=== PATIENT | female | born 1990 | race Asian ===

== ENCOUNTER 2017-02-08 16:14 | Inpatient (IN) | payer OTHER ==
[~2017-02-08] VITALS: Ht 157.5 cm; Wt 82.1 kg
[2017-02-08] MEDS ORDERED: LACTATED RINGER'S 1,000 ML IV SCH (16:24)
[2017-02-08 16:30] VITALS: Ht 157.5 cm; Wt 82.1 kg
[2017-02-08] MEDS ORDERED: OXYTOCIN 30 UNITS/LR 500 ML IV SCH ×2 (16:30)
[2017-02-08] MEDS ORDERED: MISOPROSTOL 200 MCG TAB PR PRN (16:30)
[2017-02-08] MEDS ORDERED: LIDOCAINE 1% (MPF) 30 ML INJ INJ PRN (16:30)
[2017-02-08] MEDS ORDERED: CARBOPROST 250 MCG INJ IM PRN (16:30)
[2017-02-08] MEDS ORDERED: IBUPROFEN 600 MG TAB PO PRN (16:30)
[2017-02-08] MEDS ORDERED: AMPICILLIN 2 GM/NS (PMX) 100 ML IV ONE (16:30)
[2017-02-08] MEDS ORDERED: OXYTOCIN 30 UNITS/LR 500 ML IV PRN (16:30)
[2017-02-08] MEDS ORDERED: METHYLERGONOVINE 0.2 MG INJ IM PRN (16:30)
[2017-02-08] MEDS ORDERED: MAGNESIUM SULFATE 4 GM/100 ML 100 ML IV SCH (17:00)
[2017-02-08] MEDS ORDERED: CA GLUCONATE (GM) 10% 10ML INJ IV PRN (17:00)
[2017-02-08] MEDS: LACTATED RINGER'S 1,000 ML IV SCH (17:01)
[2017-02-08 17:29] VITALS: BP 128/84; PULSE 83; RESP 18
[2017-02-08] MEDS ORDERED: PRENAT PO (17:31)
[2017-02-08] MEDS ORDERED: FERR236T PO (17:32)
[2017-02-08] MEDS ORDERED: CALC600T11 PO (17:32)
[2017-02-08 17:46] LABS: ALBUMIN 3.5 g/dl (3.3-4.9); ALBUMIN/GLOBULIN RATIO 0.85; CALCIUM 9.3 mg/dl (8.4-10.2); CREATININE 0.82 mg/dl (0.44-1.00); POTASSIUM 4.3 mmol/L (3.5-5.1); TOTAL PROTEIN 7.6 g/dl (6.1-8.1)
[2017-02-08] MEDS: MAGNESIUM SULFATE 20 GM/500 ML 500 ML IV SCH (17:58)
[2017-02-08 18:57] LABS: ADD UMIC YES; UR ASCORBIC ACID NEGATIVE (NEGATIVE); UR BACTERIA FEW /HPF (NONE SEEN); UR BILIRUBIN (Dip) NEGATIVE (NEGATIVE); UR BLOOD (Dip) 1+ mg/dL (NEGATIVE); UR CLARITY CLEAR (CLEAR); UR COLOR YELLOW (YELLOW); UR GLUCOSE (Dip) NEGATIVE (NEGATIVE); UR KETONES (Dip) NEGATIVE (NEGATIVE); UR LEUKOCYTE ESTERASE (Dip) NEGATIVE Leu/ul (NEGATIVE); UR NITRITE (Dip) NEGATIVE (NEGATIVE); UR RBC 0 /HPF (0-5); UR SPECIFIC GRAVITY (Dip) 1.009 (1.003-1.030); UR TOTAL PROTEIN (Dip) 2+ mg/dl (NEGATIVE); UR UROBILINOGEN (Dip) NEGATIVE (NEGATIVE)
[2017-02-08 19:36] LABS: ABNORMAL IP MESSAGE 1; BASOPHILS % 0.2 % (0.0-2.0); EOSINOPHILS % 0.1 % (0.0-7.0); HEMATOCRIT 32.2 % (37.0-47.0); HEMOGLOBIN 10.2 g/dl (12.0-16.0); LYMPHOCYTES # 2.6 10^3/ul (0.8-2.9); LYMPHOCYTES % 11.4 % (15.0-51.0); MEAN CORPUSCULAR HEMOGLOBIN 25.7 pg (29.0-33.0); MEAN CORPUSCULAR HGB CONC 31.7 g/dl (32.0-37.0); MEAN CORPUSCULAR VOLUME 81.1 fl (82.0-101.0); MEAN PLATELET VOLUME 11.8 fl (7.4-10.4); MONOCYTE # 1.9 10^3/ul (0.3-0.9); NEUTROPHILS % 75.6 % (39.0-77.0); NUCLEATED RED BLOOD CELLS # 0.2 10^3/ul (0.0-0.0); NUCLEATED RED BLOOD CELLS% 0.8 /100WBC (0.0-0.0); PLATELET COUNT 367 10^3/UL (140-415); RED BLOOD COUNT 3.97 10^6/ul (4.20-5.40); RED CELL DISTRIBUTION WIDTH 14.1 % (11.5-14.5); WHITE BLOOD COUNT 23.2 10^3/ul (4.8-10.8)
[2017-02-08 19:41] LABS: POSITIVE DIFF @See below
[2017-02-08 19:42] LABS: INR 0.82; PROTIME 11.3 Sec (12.2-14.2); PT RATIO 0.9
[2017-02-08 19:43] LABS: PARTIAL THROMBOPLASTIN TIME 28.1 Sec (25.0-35.0)
[2017-02-08] MEDS ORDERED: LABETALOL HCL 20MG INJ IV PRN (20:30)
[2017-02-08] MEDS ORDERED: AMPICILLIN 1 GM/NS (PMX) 50 ML IV SCH (20:30)
[2017-02-09] VITALS (7 sets, daily range): BP systolic 137–154; BP diastolic 69–86; PULSE 70–89; RESP 18
[2017-02-09] MEDS: MAGNESIUM SULFATE 20 GM/500 ML 500 ML IV SCH ×2 (03:30→17:46)
[2017-02-09] MEDS ORDERED: FAMOTIDINE 20 MG INJ IV PRN (03:30)
--- NOTE | 2017-02-09 04:26 | HP ---
Date/Time of Note Date/Time of Note DATE: 02/09/17 TIME: 04:20 OB - History Hx of Present Free Text/Dictation 26 y.o primigravida at 34w3d was sent from clinic for poss induction or futher evaluation for elevated blood pressure and proteinuria Chief Complaint: PIH Estimated Due Date: Mar 19, 2017 : 1 Para: 0 Spontaneous : 0 Therapeutic : 0 Care: Good Care Ultrasounds: Normal mid trimester US Obstetrical Complications: None, Gestational Hypertension Medical Complications: None Past Family/Social History * Past Medical, Surgical, Family and Obstetric Histories reviewed from chart. Blood Type: AB+ Rubella: immune RPR/VDRL: Negative GBS Status: Unknown HBsAG: Negative OB Admission Exam Vital Signs Vital Signs Vital Signs Date Time Temp Pulse Resp B/P Pulse Ox O2 Delivery O2 Flow Rate FiO2 02/08/17 17:29 98.2 83 18 128/84 Room Air Physical Exam HEENT: WNL Heart: Rhythm Normal Lungs: Clear, Equal Abdomen: WNL Extremities: Normal Reflexes: Normal Cervical Dilatation: None Effacement: 0% Station: -3 Membranes: Intact Amniotic Fluid: Unevaluable Heart Rate: 130's Accelerations: Accelerations Present Decelerations: No Decelerations Varibility: Moderate Contractions on Admission: None Last 72 hourBlood Glucose Bedside Glucose - 72 Hours Test 02/09/17 01:08 Bedside Glucose 101mg/dL (70-220) Last 72 hours Lab Results CBC & BMP 02/08/17 16:54 Liver Function Test 02/08/17 16:54 Alanine Aminotransferase (ALT/SGPT) 61 Albumin 3.5 Alkaline Phosphatase 260 H Aspartate Amino Transf (AST/SGOT) 67 H Direct Bilirubin 0.00 Total Protein 7.6 Magnesium Level Test 02/09/17 00:53 Magnesium Level 6.3 *H OB Assessment/Plan Other Assessment: IUP 34w4d PIH Plan: Induction Other plan: terrell consult NEELIMA MONTILLA MD Feb 09, 2017 04:26
[2017-02-09] MEDS: LACTATED RINGER'S 1,000 ML IV SCH ×2 (06:10→20:52)
--- NOTE | 2017-02-09 09:35 | RADRPT ---
PROCEDURE: US OB. CLINICAL INDICATION: labor at 34 weeks gestational age. TECHNIQUE: Multiple sonographic images of the uterus were obtained. The images were revi ewed on a PACS workstation. COMPARISON: No prior studies are available for comparison. FINDINGS: There is a single live intrauterine gestation. heart rate is 124 beats per minute. Measurements were made in order to determine age. The results are as follows: BPD = 8.31 cm. HC = 29.41 cm. AC = 29.87 cm. FL = 6.05 cm. Estimated weight is 2091 +/- 314 grams. LMP growth percentile is 9.8 %. Menstrual age by ultrasound dates is 32 weeks 6 days. The estimated date of delivery is 03/31/2017. Position is cephalic and placenta is anterior grade II. There is no evidence for an abruption or lillian centa previa. IMPRESSION: 1. Single live intrauterine gestation of 32 weeks 6 days menstrual age by ultrasound dates. 2. The estimated date of delivery is 03/31/2017. RPTAT: QQ .Lei Flood MD, Date Time Electronically viewed and signed by .Lei Flood MD, on 02/09/2017 09:34 .R/
[2017-02-09 14:16] LABS: BASOPHIL # 0.1 10^3/ul (0.0-0.1); BASOPHILS % 0.5 % (0.0-2.0); EOSINOPHILS # 0.1 10^3/ul (0.0-0.5); EOSINOPHILS % 0.3 % (0.0-7.0); HEMATOCRIT 33.1 % (37.0-47.0); HEMOGLOBIN 10.7 g/dl (12.0-16.0); LYMPHOCYTES # 2.4 10^3/ul (0.8-2.9); LYMPHOCYTES % 13.5 % (15.0-51.0); MEAN CORPUSCULAR HEMOGLOBIN 26.6 pg (29.0-33.0); MEAN CORPUSCULAR HGB CONC 32.3 g/dl (32.0-37.0); MEAN CORPUSCULAR VOLUME 82.1 fl (82.0-101.0); MEAN PLATELET VOLUME 11.3 fl (7.4-10.4); MONOCYTE # 1.5 10^3/ul (0.3-0.9); MONOCYTES % 8.4 % (0.0-11.0); NEUTROPHILS % 72.9 % (39.0-77.0); NUCLEATED RED BLOOD CELLS # 0.2 10^3/ul (0.0-0.0); PLATELET COUNT 352 10^3/UL (140-415); RED BLOOD COUNT 4.03 10^6/ul (4.20-5.40); RED CELL DISTRIBUTION WIDTH 13.9 % (11.5-14.5); WHITE BLOOD COUNT 17.7 10^3/ul (4.8-10.8)
[2017-02-09 14:36] LABS: ALBUMIN 3.2 g/dl (3.3-4.9); ALBUMIN/GLOBULIN RATIO 0.88; BILIRUBIN,INDIRECT 0.1 mg/dl (0-1.1); BILIRUBIN,TOTAL 0.1 mg/dl (0.2-1.3); CALCIUM 8.4 mg/dl (8.4-10.2); CREATININE 1.1 mg/dl (0.44-1.00); POTASSIUM 4.2 mmol/L (3.5-5.1); TOTAL PROTEIN 6.8 g/dl (6.1-8.1); URIC ACID 10.4 mg/dl (3.1-7.9)
--- NOTE | 2017-02-09 14:43 | PERINOTE ---
Date/Time of Note Date/Time of Note DATE: 02/09/17 TIME: 14:35 Assessment/Recommendations Other Assessments Preeclampsia remote from term --severe by BP criteria --mildly elevated AST is of uncertain significance Gestational diabetes (A1) growth restriction by US done here Late presentation to care Recommendations: Given severe preeclampsia I would deliver now. I would repeat the [facility] labs prior to delivery to exclude thrombocytopenia or worsening liver function. I discussed this recommendation with the patient OB Subjective Free Text/Dictaton Patient admitted for newly elevated BP, likely preecpampsia remote from term. Patient reports that she was recently seen at another hospital where BP was also noted to be elevated. She was discharged after a course of betamethasone. HD# 2 IUP @ 34W4D Complaints/Overnight events None Current Medications Current Medications Lactated Ringer's 1,000 ml @ 75 mls/hr [id number] IV Last administered on 06:10; Admin Dose 75 MLS/HR; Start 02/08/17 at 16:38 Magnesium Sulfate (Magnesium Sulfate 20 Gm/500 ml) 500 ml @ 25 mls/hr Q20H IV Last administered on 02/09/17 03:30; Admin Dose 50 MLS/HR; Start 02/08/17 at 16: 38 Calcium Gluconate (Ca Gluc) 1 gm ONCE PRN IV FOR MAGNESIUM TOXICITY; Start at 17:00 Labetalol HCl (Labetalol) 20 mg PRN PRN IV ELEVATED BLOOD PRESSURE; Start at 20:30 Famotidine (Pepcid Iv) 20 mg BID PRN IV GASTROINTESTINAL UPSET Last administered on 02/09/17 03:31; Admin Dose 20 MG; Start 02/09/17 at 03:30 Past Medical History Medical History: no pertinent history Surgical History: no surgical history 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 Minimal movement) OB Admission Exam Physical Exam Vitals: Vital Signs Date Time Temp Pulse Resp B/P Pulse Ox O2 Delivery O2 Flow Rate FiO2 02/08/17 17:29 98.2 83 18 128/84 Room Air BP at the time of consultation 167/90. Multiple prior BPs with systolic greater than 160 are noted. HEENT: Abnormal (Face and hand edema) Heart: Rhythm Normal Lungs: Clear Abdomen: WNL Reflexes: Hyperreflexia Present Last 72 hourBlood Glucose Bedside Glucose - 72 Hours Test 02/09/17 01:08 02/09/17 08:41 Bedside Glucose 101mg/dL (70-220) 85mg/dL (70-220) Last 72 hours Lab Results CBC & BMP 02/08/17 16:54 02/09/17 13:50 Liver Function Test 02/08/17 16:54 Alanine Aminotransferase (ALT/SGPT) 61 Albumin 3.5 Alkaline Phosphatase 260 H Aspartate Amino Transf (AST/SGOT) 67 H Direct Bilirubin 0.00 Total Protein 7.6 Hemoglobin A1C Test 02/09/17 05:58 Hemoglobin A1c 5.9 Magnesium Level Test 02/09/17 00:53 02/09/17 05:58 Magnesium Level 6.3 *H 7.5 *H Ultrasound Results EFW 2090, 9.8%ile for GA Copies To: CC: BHUPENDRA MCALLISTER MD, MARIE H MD Feb 09, 2017 14:43
--- NOTE | 2017-02-09 15:05 | QN ---
Documentation Job number: Neonatology consultation Comment I was asked to talk with his mother who is 26 year old, 1 para 0 AB 0 with good care. Fetus is 2109 g by ultrasound with an estimated gestational age of 34.4 weeks. Mother was admitted on 02 08 with complaints of spotting and increased blood pressure consistent with possible preeclampsia as well as gestational diabetes type A.Mother received first dose of betamethasone on 02/07 at 0430 hours and second dose on 02/07 at 1730 hrs. She was started on magnesium sulfate on 02/08 at 7 1728 hrs. Perinatologist recommended the mother to be induced and delivered. Her blood pressures are variable and sometimes elevated according to the OB nurse. I discussed the expected course for 34-1/2 week premature infant in NICU including resuscitation at delivery, oxygen administration, CPAP administration if needed and oxygen and CPAP administration and surfactant administration if has distress syndrome.I also discussed about low incidence of apnea of prematurity and stimulation and possible caffeine administration if needed. I also discussed about the risk of sepsis and possible administration of antibiotics if clinically indicated.Also discussed about the infant to be on IV fluids initially to be started on feedings when is clinically stable with tube feedings or bottlefeeding. Encourage mother to pump breastmilk and discussed about the benefits of breastmilk. Also discussed about risk for hyperbilirubinemia as well as treatment with phototherapy and incidence of gastroesophageal reflux and poor feeding and length of stay.Discussed about good prognosis including length of stay of 2-3 weeks. Mother was apprehensive and I reassured her about good prognosis at 34-1/2 weeks. Discussed about increased risk for neurodevelopmental delay due to prematurity. The discussion was concluded after mother had no further questions. Thank you for the consultation and involving us with the care of this mother and infant. MAI OLSON MD Feb 09, 2017 15:05
[2017-02-09 15:17] LABS: INR 0.89; PT RATIO 0.9
[2017-02-09] MEDS ORDERED: FAMOTIDINE 20 MG INJ IV ONE (15:30)
[2017-02-09] MEDS ORDERED: METOCLOPRAMIDE 10 MG INJ IV ONE (15:30)
[2017-02-09] MEDS ORDERED: CITRIC ACID/NA CITRATE 30 ML CUP PO ONE (15:30)
[2017-02-09] MEDS ORDERED: CEFAZOLIN 2 GM/50 ML (PMX) 50 ML IVPB ONE (15:30)
[2017-02-09] MEDS ORDERED: morphine SULFATE/PF (10 MG/10 ML) INJ ONE (16:18)
[2017-02-09] MEDS ORDERED: FENTAnyl 50 MCG/ML VIAL ONE (16:18)
[2017-02-09] MEDS ORDERED: ONDANSETRON 4 MG INJ ONE (16:30)
[2017-02-09] MEDS ORDERED: OXYTOCIN 30 UNITS/LR 500 ML IV ONE ×2 (16:32→17:51)
[2017-02-09] MEDS ORDERED: PHENYLephrine (100 MCG/ML) 5ML SYG ONE (16:41)
--- NOTE | 2017-02-09 16:52 | OPR ---
Operative Report Planned Procedure Free Text/Dictation 34 weeks with severe PIH Procedure date Feb 09, 2017 Performed by see signature line Assisting provider: BHUPENDRA MCALLISTER MD Anesthesiologist: AUDRA PANDYA Procedure Description Under satisfactory [spianl ] anesthesia, the patient was prepped and draped and placed in a supine position, tilted to the left. Pfannenstiel incision was made , carried through the subcutaneous tissue. Bleeders brought under control with electrocautery. Fascia incised to the length of the incision. Rectus muscles from the fascia, divided midline. Peritoneum exposed, entered through a transverse incision. Exploration of abdomen revealed gravid uterus. Bladder flap was developed. Transverse incision was made in the lower segment of the uterus. Amniotic sac ruptured. . [] Nasal oropharyngeal suction was performed. The baby was handed to the team for immediate attention. The placenta was delivered manually intact. Uterine cavity was cleaned with wet sponge and drainage established. Uterus closed in 2 layers using one monocryl in continuous fashion. Peritoneal cavity irrigated with warm saline. Sponge, needle and instrument count reported to be correct. Abdominal peritoneum closed with [] continuously. Rectus muscle approximated with []. Fascia closed with one moncoryl [], and skin closed with gunner. Estimated blood loss 700mL Post-Procedure Findings: Live Baby [], Apgars [] and [], weight [], position [], [] presentation []cord. Specimen(s): yes (see below) Specimen(s) description placenta Grafts/Implants: no Complication(s): no Pt Condition post procedure: stable Disposition: PACU Physician Certification I, the undersigned physician, hereby certify that I have discussed the procedure described in this consent form with this patient (or the patient's legal freight representative), including: * The risk and benefits of the procedure; * Any adverse reactions that may reasonably be expected to occur; * Any alternative efficacious methods of treatment which may be medically viable ; * The potential problems that may occur during recuperation; * Potential for blood transfusion and associated risks/benefits; and * Any research or economic interest I may have regarding this treatment. I further certify that the patient/legally responsible person was encouraged to ask question and that all questions were answered. BHUPENDRA MCALLISTER MD Feb 09, 2017 16:52
[2017-02-09] MEDS ORDERED: MAGNESIUM SULFATE 1 GM/D5W 100 ML IVPB ONE (17:00)
[2017-02-09] MEDS ORDERED: DIPHENHYDRAMINE 50 MG INJ ONE (17:48)
[2017-02-09] MEDS ORDERED: DIPHENHYDRAMINE 50 MG INJ IV ONE (17:50)
[2017-02-09] MEDS ORDERED: OXYTOCIN 30 UNITS/LR 500 ML IV SCH (18:00)
[2017-02-09] MEDS ORDERED: LABETALOL HCL 20MG INJ IV ONE (19:20)
[2017-02-09] MEDS: OXYTOCIN 30 UNITS/LR 500 ML IV SCH ×2 (20:52→23:01)
[2017-02-09] MEDS ORDERED: NACL 0.9% 3 ML SYG IV SCH (21:00)
[2017-02-09] MEDS ORDERED: LANOLIN 7 GM TUBE TOP PRN (21:00)
[2017-02-09] MEDS ORDERED: ZOLPIDEM 5 MG TAB PO PRN (21:00)
[2017-02-09] MEDS ORDERED: KETOROLAC 30 MG INJ IV PRN (21:00)
[2017-02-09] MEDS ORDERED: NA PHOSPHATE/BIPHOS 133 ML ENEMA PR PRN (21:00)
[2017-02-09] MEDS ORDERED: MISOPROSTOL 200 MCG TAB PR PRN (21:00)
[2017-02-09] MEDS ORDERED: NALOXONE (0.4 MG/ML) INJ IV PRN (21:00)
[2017-02-09] MEDS ORDERED: OXYTOCIN 30 UNITS/LR 500 ML IV PRN (21:00)
[2017-02-09] MEDS ORDERED: DIPHENHYDRAMINE 50 MG INJ IV PRN (21:00)
[2017-02-09] MEDS ORDERED: CARBOPROST 250 MCG INJ IM PRN (21:00)
[2017-02-09] MEDS ORDERED: NALBUPHINE HCL (10 MG/1 ML) INJ IV PRN (21:00)
[2017-02-09] MEDS ORDERED: METHYLERGONOVINE 0.2 MG INJ IM PRN (21:00)
[2017-02-09] MEDS ORDERED: HYDROmorphONE 1 MG/ML SYG IV PRN ×2 (21:00)
[2017-02-09] MEDS ORDERED: ONDANSETRON 4 MG INJ IV PRN (21:00)
[2017-02-09] MEDS: IBUPROFEN 800 MG TAB PO SCH (22:00)
[2017-02-10] VITALS (17 sets, daily range): BP systolic 133–157; BP diastolic 69–90; PULSE 75–93; RESP 16–21
[2017-02-10] MEDS: LACTATED RINGER'S 1,000 ML IV SCH ×2 (03:58→14:07)
[2017-02-10] MEDS: IBUPROFEN 800 MG TAB PO SCH ×3 (06:00→22:00)
[2017-02-10 07:36] LABS: ABNORMAL IP MESSAGE 1; BASOPHILS % 0.1 % (0.0-2.0); EOSINOPHILS % 0.2 % (0.0-7.0); HEMATOCRIT 30.2 % (37.0-47.0); HEMOGLOBIN 9.8 g/dl (12.0-16.0); LYMPHOCYTES # 2.7 10^3/ul (0.8-2.9); LYMPHOCYTES % 13.4 % (15.0-51.0); MEAN CORPUSCULAR HEMOGLOBIN 26.7 pg (29.0-33.0); MEAN CORPUSCULAR HGB CONC 32.5 g/dl (32.0-37.0); MEAN CORPUSCULAR VOLUME 82.3 fl (82.0-101.0); MEAN PLATELET VOLUME 11.3 fl (7.4-10.4); MONOCYTE # 1.7 10^3/ul (0.3-0.9); MONOCYTES % 8.3 % (0.0-11.0); NEUTROPHILS % 75.6 % (39.0-77.0); NUCLEATED RED BLOOD CELLS # 0.1 10^3/ul (0.0-0.0); NUCLEATED RED BLOOD CELLS% 0.4 /100WBC (0.0-0.0); PLATELET COUNT 321 10^3/UL (140-415); RED BLOOD COUNT 3.67 10^6/ul (4.20-5.40); RED CELL DISTRIBUTION WIDTH 13.9 % (11.5-14.5)
[2017-02-10 07:41] LABS: POSITIVE DIFF @See below
--- NOTE | 2017-02-10 12:59 | QN ---
Documentation Comment Progress Note POD #1 Laborist Pt feels sleepy from the magnesium but otherwise has not needed additional pain meds since the spinal block. No flatus yet. Has been asking for Mylicon as feels like she has gas. No nausea or vomiting and tolerating clears. T= 99.8 BP 140/80 Face is puffy, edematous. Fundus firm. Dressing clean, dry, and intact. Lochia minimal. Ext NT, 1+ edema. WBC 20K Hgb 9.8 Plts 321K P: D/C magnesium and the gray at 1700. Will follow BP's to see if will need BP meds or not. Will repeat the CBC in the AM. Pt can go to see her baby after the magnesium is d/c'ed. MIKE MOORE MD Feb 10, 2017 12:59
[2017-02-10] MEDS: OXYCODONE/ACETAMINOPHEN (5/325) TAB PO PRN ×2 (15:56→21:03)
[2017-02-11] MEDS: OXYCODONE/ACETAMINOPHEN (5/325) TAB PO PRN ×2 (03:03→09:27)
[2017-02-11 04:00] VITALS: BP 135/70; PULSE 97; RESP 20
[2017-02-11] MEDS: IBUPROFEN 800 MG TAB PO SCH ×3 (05:33→22:44)
[2017-02-11 07:20] LABS: BASOPHIL # 0.1 10^3/ul (0.0-0.1); BASOPHILS % 0.2 % (0.0-2.0); EOSINOPHILS # 0.1 10^3/ul (0.0-0.5); EOSINOPHILS % 0.4 % (0.0-7.0); HEMATOCRIT 31.2 % (37.0-47.0); HEMOGLOBIN 10.1 g/dl (12.0-16.0); LYMPHOCYTES # 2.3 10^3/ul (0.8-2.9); LYMPHOCYTES % 10.6 % (15.0-51.0); MEAN CORPUSCULAR HEMOGLOBIN 26.4 pg (29.0-33.0); MEAN CORPUSCULAR HGB CONC 32.4 g/dl (32.0-37.0); MEAN CORPUSCULAR VOLUME 81.5 fl (82.0-101.0); MONOCYTE # 1.4 10^3/ul (0.3-0.9); MONOCYTES % 6.5 % (0.0-11.0); NEUTROPHILS % 79.8 % (39.0-77.0); NUCLEATED RED BLOOD CELLS # 0.1 10^3/ul (0.0-0.0); NUCLEATED RED BLOOD CELLS% 0.3 /100WBC (0.0-0.0); PLATELET COUNT 324 10^3/UL (140-415); RED BLOOD COUNT 3.83 10^6/ul (4.20-5.40); RED CELL DISTRIBUTION WIDTH 14.1 % (11.5-14.5); WHITE BLOOD COUNT 21.9 10^3/ul (4.8-10.8)
[2017-02-11 08:25] VITALS: BP 138/88; PULSE 89; RESP 20
[2017-02-11 12:01] VITALS: BP 171/93; RESP 20
[2017-02-11] MEDS: HYDROCODONE/APAP (5/325) TAB PO PRN ×2 (12:43→17:48)
[2017-02-11 16:32] VITALS: BP 149/91; PULSE 89; RESP 20
--- NOTE | 2017-02-11 18:47 | QN ---
Documentation Comment POD#2 is stable aferile No Vb +Flatus +voids VS stable Gen NAD Abd soft NT ND Incision intact Genitalia No blood at perinium --->discharge plan tomorrow MARTIN ROSE M.D. Feb 11, 2017 18:47
[2017-02-11 20:00] VITALS: BP 147/83; PULSE 73; RESP 18
[2017-02-12 04:00] VITALS: BP 137/88; PULSE 98; RESP 18
[2017-02-12] MEDS: IBUPROFEN 800 MG TAB PO SCH ×3 (05:30→21:25)
--- NOTE | 2017-02-12 08:48 | QN ---
Documentation Comment doing well vss abd soft d/c home next am BHUPENDRA MCALLISTER MD Feb 12, 2017 08:48
--- NOTE | 2017-02-12 08:49 | PD.PPDC ---
OPERATING ROOM ORDERLY Discharge Instruction Condition Patient Condition: Good Diet Diet: Resume Regular Diet Activity/Restrictions Activity: Normal Activity May Shower Restrictions: No Exercising No Lifting No Driving No Sexual Activity Nothing in the Vagina No [place] No Tampons, douche Wound/Drain Care Instructions Wound/Drain Care Instructions: Wash with soap and water Keep clean and dry Follow-up Follow-up with Physician: 3, Week/Weeks Return to clinic for ASSISTANT LIBRARIAN Instructions: Fever greater than 101 Chills Worsening abdominal pain Excessive Vaginal Bleeding More than 2 pads per hour Unable to tolerate diet OB Instructions: Breast Tenderness Depression Blurried Vision Headache Surgical Instructions: Incisional Drainage Incisional Redness BHUPENDRA MCALLISTER MD Feb 12, 2017 08:49
--- NOTE | 2017-02-12 08:51 | DS ---
Date/Time of Note Date/Time of Note DATE: 02/12/17 TIME: 08:50 Discharge Summary Admission/Discharge Info Admit Date/Time Feb 08, 2017 at 16:14 Discharge Date/Time Discharge Diagnosis delivery due to PIH Patient Condition: Stable Procedures primary c/s Hospital Course magnesium for PIH,and HTN control Home Meds Reported Medications Calcium Carbonate* (Calcium Carbonate*) 600 MG Ca Tab, 600 MG PO DAILY, TAB 02/08/17 Ferrous Gluconate (Iron) 236 Mg Tablet, 236 MG PO DAILY, TAB 02/08/17 Multivit/Min/Fol Ac/Iron/Pren* ( S*) 1 Tab Tab, 1 TAB PO DAILY, TAB 02/08/17 Primary Care Provider DO ARY Wellington PAYMAN P MD Feb 12, 2017 08:51
[2017-02-12] MEDS ORDERED: DIPHTH/TET/ACEL PERTUSS (ADULT) 0.5 ML VIAL IM* ONE (09:00)
[2017-02-12] MEDS ORDERED: MEASLES,MUMPS,RUBELLA VACCINE INJ SC* ONE (09:00)
[2017-02-12 09:45] VITALS: BP 162/91; PULSE 89; RESP 19
[2017-02-12] MEDS ORDERED: NIFEdipine (XL) 60 MG TAB PO SCH (12:00)
[2017-02-12 12:45] VITALS: BP 146/84; PULSE 80; RESP 19
[2017-02-12 16:00] VITALS: BP 162/91; PULSE 105; RESP 17
[2017-02-12 19:00] VITALS: BP 139/83; PULSE 106; RESP 19
[2017-02-12 19:45] VITALS: BP 132/83; PULSE 88; RESP 19
[2017-02-13] MEDS: IBUPROFEN 800 MG TAB PO SCH ×3 (05:45→22:31)
[2017-02-13] MEDS: OXYCODONE/ACETAMINOPHEN (5/325) TAB PO PRN (06:08)
[2017-02-13 10:00] VITALS: BP 146/107; PULSE 100; RESP 18
[2017-02-13] MEDS ORDERED: DIPHTH/TET/ACEL PERTUSS (ADULT) 0.5 ML VIAL IM* ONE (10:00)
[2017-02-13 10:01] VITALS: BP 153/99; PULSE 82; RESP 18
[2017-02-13] MEDS ORDERED: NIFEdipine (XL) 60 MG TAB PO ONE (11:30)
[2017-02-13 15:00] VITALS: BP 160/106; PULSE 105; RESP 18
[2017-02-13 15:01] VITALS: BP 154/102; PULSE 100; RESP 18
--- NOTE | 2017-02-13 17:37 | QN ---
Documentation Comment Pt. BP HAD INCREASED YESTERDAY AND THE D/C HOME WAS CANCELED. PROCARDIA 60 MG XL WAS GIVEN PT. CONTINUES TO HAVE HIGH BP AND A MEDICAL CONSULT WAS ORDERED\ SHE IS STARTED ON PROCARDIA AND LOBTALOL. ONCE CLEARED BY THE HOSPITALIST GIO D/C BHUPENDRA MARCUS MD Feb 13, 2017 17:37
--- NOTE | 2017-02-13 17:52 | CONS ---
Date/Time of Note Date/Time of Note DATE: 02/13/17 TIME: 17:47 Assessment/Plan Assessment/Plan Chief Complaint/Hosp Course 1. Hypertension BP continues to be elevated in spite of Procardia 60 mg daily, will start labetalol 100 mg p.o. twice daily DC home with both Procardia and labetalol in a.m. if SBP is less than 140 Problems: Consultation Date/Type/Reason Admit Date/Time Feb 08, 2017 at 16:14 Type of Consultation: Medicine Reason for Consultation Hypertension Hx of Present Illness Patient is a 26-year-old female with no significant medical history. Patient is now status post after having been diagnosed with preeclampsia. Patient postop course has become gated by hypertension the patient was started on Procardia 60 mg daily he had BP is still elevated. Patient has no history of hypertension or any other significant medical history. Patient has no complaints of dizziness or headache at this time. Constitutional: improved, no complaints Eyes: no complaints ENT: no complaints Respiratory: no complaints Cardiovascular: no complaints Gastrointestinal: no complaints Genitourinary: no complaints Musculoskeletal: no complaints Skin: no complaints Neurologic: no complaints Endocrine: no complaints Lymphatic: no complaints Psychological: nl mood/affect, no complaints Immunologic: no complaints Past Medical History Medical History: no pertinent history Past Surgical History Family History Significant Family History: no pertinent family hx Social History Alcohol Use: none Smoking Status: Never smoker Drug Use: none Exam/Review of Systems Vital Signs Vitals Vital Signs Date Time Temp Pulse Resp B/P Pulse Ox O2 Delivery O2 Flow Rate FiO2 02/13/17 15:01 100 18 154/102 Room Air 02/13/17 15:00 98.5 02/12/17 19:58 94 21 02/11/17 02:15 2.0 Exam Constitutional: alert, oriented Head: normocephalic Respiratory: clear to auscultation Cardiovascular: regular rate and rhythm Gastrointestinal: soft, No distended Musculoskeletal: nl extremities to inspection Results Result Diagram: 02/11/17 0652 02/09/17 1350 Medications Medications Current Medications Acetaminophen/ Hydrocodone Bitart ([place] (5/325)) 2 tab Q4H PRN PO PAIN LEVEL 7 -10 Last administered on 02/11/17t 17:48; Admin Dose 2 TAB; Start 02/09/17 at 21: 00 Oxycodone/ Acetaminophen (Percocet (5/ 325)) 2 tab Q4H PRN PO PAIN LEVEL 7-10 Last administered on 02/13/17 06:08; Admin Dose 2 TAB; Start 02/09/17 at 21:00 Ibuprofen (Motrin) 800 mg Q8 PO Last administered on 02/13/17 13:25; Admin Dose 800 MG; Start 02/09/17 at 22:00 Simethicone (Mylicon) 160 mg Q8H PRN PO DISTENSION/GAS/BLOATING Last administered on 02/11/17 09:27; Admin Dose 160 MG; Start 02/09/17 at 21:00 Sodium Biphosphate/ Sodium Phosphate 133 ml 133 ml DAILY PRN [place] CONSTIPATION; Start 02/09/17 at 21:00 Oxytocin/Lactated Ringer's 500 ml @ 0 mls/hr ONCE PRN IV For Hemorrhage Management; Start 02/09/17 at 21:00 Methylergonovine Maleate (Methergine) 0.2 mg ONCE PRN IM VAGINAL BLEEDING; Start 02/09/17 at 21:00 Carboprost Tromethamine (Hemabate) 250 mcg ONCE PRN IM VAGINAL BLEEDING; Start 02/09/17 at 21:00 Misoprostol (Cytotec) 1,000 mcg ONCE PRN [place] VAGINAL BLEEDING; Start 02/09/17 at 21:00 DORIAN VEGA Feb 13, 2017 17:52
[2017-02-13 19:40] VITALS: BP 125/65; PULSE 95; RESP 18
[2017-02-13] MEDS: LABETALOL 100 MG TAB PO SCH (20:45)
[2017-02-14 04:15] VITALS: BP 121/66; PULSE 92; RESP 18
[2017-02-14] MEDS: IBUPROFEN 800 MG TAB PO SCH ×2 (05:35→14:00)
[2017-02-14 08:00] VITALS: BP 129/79; PULSE 79; RESP 18
[2017-02-14] MEDS: LABETALOL 100 MG TAB PO SCH (08:20)
[2017-02-14] MEDS ORDERED: NIFEdipine (XL) 60 MG TAB PO SCH (09:00)
[2017-02-14 10:16] LABS: BASOPHIL # 0.1 10^3/ul (0.0-0.1); BASOPHILS % 0.3 % (0.0-2.0); EOSINOPHILS # 0.4 10^3/ul (0.0-0.5); EOSINOPHILS % 1.9 % (0.0-7.0); HEMATOCRIT 32.3 % (37.0-47.0); HEMOGLOBIN 9.8 g/dl (12.0-16.0); LYMPHOCYTES # 2.9 10^3/ul (0.8-2.9); LYMPHOCYTES % 14.7 % (15.0-51.0); MEAN CORPUSCULAR HEMOGLOBIN 25.1 pg (29.0-33.0); MEAN CORPUSCULAR HGB CONC 30.3 g/dl (32.0-37.0); MEAN CORPUSCULAR VOLUME 82.8 fl (82.0-101.0); MEAN PLATELET VOLUME 9.8 fl (7.4-10.4); MONOCYTE # 1.3 10^3/ul (0.3-0.9); MONOCYTES % 6.8 % (0.0-11.0); NEUTROPHILS % 71.3 % (39.0-77.0); NUCLEATED RED BLOOD CELLS% 0.2 /100WBC (0.0-0.0); PLATELET COUNT 455 10^3/UL (140-415); RED CELL DISTRIBUTION WIDTH 14.7 % (11.5-14.5); WHITE BLOOD COUNT 19.5 10^3/ul (4.8-10.8)
[2017-02-14 10:39] LABS: CREATININE 0.92 mg/dl (0.44-1.00); MAGNESIUM 1.8 mg/dl (1.7-2.5); PHOSPHORUS 4.8 mg/dl (2.5-4.9); POTASSIUM 4.3 mmol/L (3.5-5.1)
--- NOTE | 2017-02-14 18:27 | PN ---
Date/Time of Note Date/Time of Note DATE: 02/14/17 TIME: 18:25 Assessment/Plan VTE Prophylaxis VTE Prophylaxis Intervention: ambulation Lines/Catheters IV Catheter Type (from Nrsg): Peripheral IV Assessment/Plan Chief Complaint/Hosp Course 1. Hypertension-now stable DC with Procardia 60 mg daily and labetalol 100 mg p.o. twice daily, follow up with PCP Patient being discharged by OB today Problems: Subjective 24 Hr Interval Summary Constitutional: no complaints Exam/Review of Systems Vital Signs Vitals Vital Signs Date Time Temp Pulse Resp B/P Pulse Ox O2 Delivery O2 Flow Rate FiO2 02/14/17 08:00 98.4 79 18 129/79 Room Air 02/12/17 19:58 94 21 02/11/17 02:15 2.0 Exam Constitutional: alert, oriented Head: normocephalic Respiratory: clear to auscultation Cardiovascular: regular rate and rhythm Gastrointestinal: soft, No distended Musculoskeletal: nl extremities to inspection Results Result Diagram: 02/14/17 0956 02/14/17 0956 Results 24 hrs Laboratory Tests Test 02/14/17 09:56 White Blood Count 19.5 H Red Blood Count 3.90 L Hemoglobin 9.8 L Hematocrit 32.3 L Mean Corpuscular Volume 82.8 Mean Corpuscular Hemoglobin 25.1 L Mean Corpuscular Hemoglobin Concent 30.3 L Red Cell Distribution Width 14.7 H Platelet Count 455 #H Mean Platelet Volume 9.8 Neutrophils % 71.3 Lymphocytes % 14.7 L Monocytes % 6.8 Eosinophils % 1.9 Basophils % 0.3 Nucleated Red Blood Cells % 0.2 H Neutrophils # (Manual) 13.9 H Lymphocytes # 2.9 Monocytes # 1.3 H Eosinophils # 0.4 Basophils # 0.1 Nucleated Red Blood Cells # 0.0 Sodium Level 138 Potassium Level 4.3 Chloride Level 105 Carbon Dioxide Level 24 Anion Gap 13 Blood Urea Nitrogen 20 Creatinine 0.92 Glucose Level 111 Calcium Level 9.0 Phosphorus Level 4.8 Magnesium Level 1.8 DORIAN VEGA Feb 14, 2017 18:27
== END 2017-02-14 15:15 | disposition home or self-care (01) | DRG 766 ==
LOC: L-D 16:14 → OBG 02-09 11:50 → L-D 02-09 15:54 → PP1 02-09 20:50
PROVIDERS: ADMIT Obstetrics & Gynecology; ATTEND Obstetrics & Gynecology
PROC: 10D00Z1 Extraction of Products of Conception, Low, Open Approach (ICD-10-PCS; principal; 2017-02-09 16:00)
DX: O60.14X0 Preterm labor third trimester with preterm delivery third trimester, not applicable or unspecified (principal); O24.429 Gestational diabetes mellitus in childbirth, unspecified control; O13.4 Gestational [pregnancy-induced] hypertension without significant proteinuria, complicating childbirth; Z3A.34 34 weeks gestation of pregnancy; Z37.0 Single live birth
CPT/HCPCS: 76815; 80048; 80053; 81001; 82962; 83036; 83735; 84100; 84560; 85025; 85384; 85610; 85730; 86592; 86850; 86900; 86901; 87340; 88307; 90715; 94760; 99464; J0690; J1200; J1885; J2274; J2370; J2405; J2590; J2765; J3010; J3475; J7120

== ENCOUNTER 2018-10-15 20:11 | Inpatient (IN) | payer BC, OTHER ==
[~2018-10-15] VITALS: Ht 157.5 cm; Wt 79.5 kg
[~2018-10-15 20:11] MED LIST: FERR236T3 PO
[2018-10-15 20:13] VITALS: Ht 157.5 cm; Wt 79.5 kg
[2018-10-15] MEDS ORDERED: AZITHROMYCIN 500MG/NS (PMX) 250 ML IV SCH (21:00)
[2018-10-15] MEDS ORDERED: OXYTOCIN 30 UNITS/LR 500 ML IV PRN (21:00)
[2018-10-15] MEDS ORDERED: MISOPROSTOL 200 MCG TAB PR PRN (21:00)
[2018-10-15] MEDS ORDERED: CARBOPROST 250 MCG INJ IM PRN (21:00)
[2018-10-15] MEDS ORDERED: OXYTOCIN 30 UNITS/LR 500 ML IV SCH (21:00)
[2018-10-15] MEDS ORDERED: CEFAZOLIN 2 GM/50 ML (PMX) 50 ML IVPB SCH (21:00)
[2018-10-15] MEDS ORDERED: TERBUTALINE 1 MG/ML INJ SC ONE (21:00)
[2018-10-15] MEDS ORDERED: METHYLERGONOVINE 0.2 MG INJ IM PRN (21:00)
[2018-10-15] MEDS: LACTATED RINGER'S 1,000 ML IV SCH ×2 (22:13→22:34)
[2018-10-15 22:30] VITALS: BP 155/89; PULSE 95; RESP 18
--- NOTE | 2018-10-15 22:50 | PREAC ---
Date/Time of Note Date/Time of Note DATE: 10/15/18 TIME: 22:48 Anesthesia Eval and Record Evaluation Time Pre-Procedure Interview DATE: 10/15/18 TIME: 22:48 Age 28 Sex female NPO: 8 hrs Preoperative diagnosis repeat, csection in labor Planned procedure c section Past Medical History Past Medical History: None Surgery & Anesthesia Issues No known issue Meds Anticoagulation: No Beta Zain within 24 hr: No Reason Beta Zain not given: Pt. not on B-Zain Reported Medications Ferrous Gluconate (Iron) 236 Mg Tablet, 236 MG PO DAILY, TAB 02/08/17 Current Medications Lactated Ringer's 1,000 ml @ 125 mls/hr Q8H IV Last administered on 10/15/18at 22:34; Admin Dose 125 MLS/HR; Start 10/15/18 at 20:47 Cefazolin Sodium/ Dextrose 50 ml @ 100 mls/hr ONCE IVPB ; Start 10/15/18 at 21:00 Oxytocin/Lactated Ringer's 500 ml @ 125 mls/hr POST IV ; Start 10/15/18 at 21:00 Azithromycin 250 ml @ 250 mls/hr ONCE IV Last administered on 10/15/18at 22:35; Admin Dose 250 MLS/HR; Start 10/15/18 at 21:00 Oxytocin/Lactated Ringer's 500 ml @ 0 mls/hr ONCE PRN IV .VAGINAL BLEEDING; Start 10/15/18 at 21:00 Methylergonovine Maleate (Methergine) 0.2 mg ONCE PRN IM .VAGINAL BLEEDING; Start 10/15/18 at 21:00 Carboprost Tromethamine (Hemabate) 250 mcg ONCE PRN IM .VAGINAL BLEEDING; Start 10/15/18 at 21:00 Misoprostol (Cytotec) 1,000 mcg ONCE PRN NE .VAGINAL BLEEDING; Start 10/15/18 at 21:00 Meds reviewed: Yes Allergies Coded Allergies: No Known Allergy (Unverified , 02/08/17) Allergies Reviewed: Yes Labs/Studies Labs Reviewed: Reviewed by anesthesiologist Result Diagram: 10/15/18 2100 10/15/18 2100 Laboratory Tests 10/15/18 21:00 Blood Bank Test 10/15/18 21:00 Antibody Screen NEGATIVE Blood Type AB POSITIVE Rh Immune Globulin Candidate NO test: Positive Studies: ECG (n/a), CXR (n/a) Pre-procedure Exam Last vitals Vital Signs Date Temp Pulse Resp B/P (MAP) Pulse Ox O2 O2 Flow FiO2 Time Delivery Rate 10/15/18 98.8 95 18 155/89 Room Air 22:30 (111) Airway: Adequate mouth opening Mallampati: Mallampati I Teeth: Normal Lung: Normal Heart: Normal ASA Physical Status ASA physical status: 2 Emergency: None Planned Anesthetic Neuraxial: Spinal Planned Pain Management Sub-arachniod narcotics Pre-operative Attestations Prior to commencing anesthesia and surgery, the patient was re-evaluated, there was verification of: *The patient's identity *The results of appropriate recent lab work and preoperative vital signs *The above evaluation not changing prior to induction *Anesthetic plan, risk benefits, alternative and complications discussed with patient/family; questions answered; patient/family understands, accepts and wishes to proceed. LUC WILLIS MD October 15, 2018 22:50
[2018-10-15] MEDS ORDERED: EPHEDrine 25 MG/5 ML SYG ONE (23:00)
--- NOTE | 2018-10-15 23:03 | TRIAGE ---
OB Triage Datetime Report Generated by CPN: 10/15/2018 23:03 Datetime: 10/15/2018 23:02 Assessment Type: Admission Assessment Pain Assessment Pain Scale: 8 Pain Presence: Intermittent Pain Type: Contraction Pain Location: Abdomen; Perineum Datetime: 10/15/2018 22:00 Labor Evaluation Frequency: 2-8 Monitor Mode: External Duration (sec)2399: 60-120 Pattern: Normal: <= 5 Contractions in 10 Minutes Heart Rate FHR Baseline Rate: 135 Monitor Mode: External US Variability: Moderate 6-25 bpm Accelerations: 15X15 Decelerations: Late Category: Category II Datetime: 10/15/2018 21:00 Labor Evaluation Frequency: 3-6 Monitor Mode: External Duration (sec)2399: 60-120 Pattern: Normal: <= 5 Contractions in 10 Minutes Heart Rate FHR Baseline Rate: 140 Monitor Mode: External US Variability: Moderate 6-25 bpm Accelerations: 15X15 Decelerations: Early Category: Category I Datetime: 10/15/2018 20:37 Vaginal Exam Dilatation (cms): 2.0 Effacement (%): 50 Station: -3 Datetime: 10/15/2018 20:33 Membranes Rupture Method: Artificial Datetime: 10/15/2018 20:32 Time of Arrival: 10/15/2018 20:00 EGA: 37.6 Arrived By: Wheelchair Arrived From: Home Chief Complaint: UC'S SINCE 1599 Movement: Present Contractions: Regular Time Contractions Began: 10/15/2018 18:00 Contractions: 3-5 MIN- PER PT Rupture of Membranes: Denies Vaginal Bleeding: None Vaginal Discharge: Present Recent Sexual Intercouse: Denies Abdominal Trauma: Not Applicable Patient Complaints: Contractions Time Provider Notified: 10/15/2018 20:41 Provider Notified: HADADIAN Initial Plan: CEFM, SVE Datetime: 10/15/2018 20:30 Monitor Mode: External Monitor Mode: External US Comments: AUDIBLE FHT Datetime: 10/15/2018 20:29 Stage of : OB Triage Assessment Type: Triage Maternal Assessment Level of Consciousness: Fully Conscious DTR's/Clonus: DTRs 2+; No Clonus Headache: Denies Blurred Vision: No Respiratory Effort: Unlabored; Regular Rhythm; Equal Expansion Breath Sounds, Left: Clear and Equal Breath Sounds, Right: Clear and Equal Nausea/Vomiting: Denies RUQ Epigastric Pain: Denies Lower Extremities Edema: None Degree: None Upper Extremities Edema: None Degree: None Facial Edema: None Temperature Route: Oral Fall Risk Assessment History of Falling: (0) No Secondary Diagnosis: (0) No Ambulatory Aid: (0) Bedrest/Nurse Assist IV Therapy: (0) No Gait: (0) Normal/Bedrest/Immobile Mental Status: (0) Oriented to Own Ability Fall Score: 0 Fall Risk Score Definition: No Risk: No action required Pain Assessment Pain Scale: 7 Pain Presence: Intermittent Pain Type: Contraction Pain Location: Abdomen; Back Pain Goal: 2 Pain Relief Measures: Comfort Measures
--- NOTE | 2018-10-15 23:18 | HP ---
Date/Time of Note Date/Time of Note DATE: 10/15/18 TIME: 23:08 OB - History Hx of Present Free Text/Dictation 28 years old 2 para 1-0-0-1 with single intrauterine at 37 weeks and 6 days with a CARLA of 529 and previous delivery complaining of uterine contractions. She states good movement. She denies nausea, vomiting, shortness of breath, chest pain, headache, visual changes, vaginal bleeding or LOF. Chief Complaint: Uterine contractions Estimated Due Date: October 30, 2018 : 2 Para: 1 Spontaneous : 0 Therapeutic : 0 Care: Good Care Ultrasounds: Normal mid trimester US Obstetrical Complications: None Medical Complications: None Past Family/Social History * Past Medical, Surgical, Family and Obstetric Histories reviewed from chart. Blood Type: AB+ Rubella: immune RPR/VDRL: Negative GBS Status: Unknown HBsAG: Negative OB Admission Exam Vital Signs Vital Signs Vital Signs Date Temp Pulse Resp B/P (MAP) Pulse Ox O2 O2 Flow FiO2 Time Delivery Rate 10/15/18 98.8 95 18 155/89 Room Air 22:30 (111) Physical Exam HEENT: WNL Heart: Rhythm Normal Lungs: Clear Abdomen: WNL Extremities: Normal Cervical Dilatation: 2cm (Reviewed above ambulating of his older) Effacement: 50% Station: -2 Membranes: Intact Heart Rate: 130's Accelerations: Accelerations Present Decelerations: No Decelerations Varibility: Moderate Contractions on Admission: < 5 Minutes Apart Last 72 hours Lab Results CBC & BMP 10/15/18 21:00 Liver Function Test 10/15/18 21:00 Alanine Aminotransferase (ALT/SGPT) 26 Albumin 3.6 Alkaline Phosphatase 238 H Aspartate Amino Transf (AST/SGOT) 33 Direct Bilirubin 0.00 Total Protein 7.3 OB Assessment/Plan Other plan: 28 years old 2 para 1-0-0-1 with previous delivery, gestational hypertension at 37 weeks and 6 days in early labor - FHR: No sign of metabolic acidosis- Category I - Continuous EFM, toco - CBC, blood type and screen - Please see the orders - AB+/Rubella: Immune - GBS: Unknown, ampicillin ordered 2. Gestational hypertension: She has no symptom of severe features. CMP and uric acid within normal limits. Observe her closely The risk of delivery including but not limited to bleeding, infection, injury to other organs (bowel, bladder, ureter, vessels, nerves), injury to fetus, blood transfusion, blood transfusion related infection, risk of anesthesia, adhesion, needs for future , removal of uterus or any other indicated surgery was discussed with the patient and her family. She expressed understanding. All of her questions were answered. She signed the informed consent. PHYSICIAN'S VERIFICATION OF INFORMED CONSENT The patient and her family counseled regarding the procedure, its indications, risks, potential complications and alternatives and any questions were answered. Consent was obtained. PLANNED PROCEDURE/TREATMENT: delivery with possible using vacuum/forcep s and any other indicated surgery PHYSICIAN'S VERIFICATION OF INFORMED CONSENT FOR BLOOD TRANSFUSION: There is a reasonable possibility that blood transfusion will be necessary as a result of the patient's procedure. I have discussed the following with the patient/patient's legal eligibility services representative: An explanation of the benefits and risks of the transfusion of blood or blood products and the possible alternatives. All questions have been answered to the patient's satisfaction. INFORMED CONSENT:The patient has been informed of: The nature of the proposed care, treatment, services, medications, interventions or procedures. Potential benefits, risks or side effects, including potential problems related to recuperation. The likelihood of achieving care treatment and service goals. Reasonable alternatives to the proposed care, treatment and service. The relevant risks, benefits and side effects related to alternatives, including the possible results of not receiving care, treatment and services. When indicated, any limitations on the confidentiality of information learned from or about the patient. If appropriate, the risks, benefits and alternatives of the drugs to be used for sedation/analgesia including moderate sedation. If appropriate, patient has been provided information on the risks, benefits and alternatives to the transfusion of blood and/or blood products. If appropriate, patient has been provided information regarding the [place] Blood Act. ANJELICA KENNEY October 15, 2018 23:18
[2018-10-15] MEDS ORDERED: METOCLOPRAMIDE 10 MG INJ ONE (23:19)
[2018-10-15] MEDS ORDERED: KETOROLAC 30 MG INJ ONE (23:19)
[2018-10-15] MEDS ORDERED: morphine SULFATE/PF (10 MG/10 ML) INJ ONE (23:19)
[2018-10-15] MEDS ORDERED: OXYTOCIN 30 UNITS/LR 500 ML IV ONE (23:19)
[2018-10-15] MEDS ORDERED: ONDANSETRON 4 MG INJ ONE (23:19)
[2018-10-16] MEDS ORDERED: OXYTOCIN 30 UNITS/LR 500 ML IV ONE (00:15)
[2018-10-16] MEDS ORDERED: EPHEDrine SULFATE 50 MG/5 ML SYG ONE (00:16)
--- NOTE | 2018-10-16 01:27 | OPR ---
Operative Report Planned Procedure Procedure date October 16, 2018 Procedure(s) 1. Repeat low transverse delivery 2. Lysis of adhesion Performed by see signature line [employer] Operator: GAVIN CRAWFORD MD Anesthesiologist: LUC WILLIS MD Pre-procedure diagnosis 28 years old 2 para 1-0-0-1 with single intrauterine at the 37 weeks and 6days in labor, desiring repeat delivery. [id number] Anesthesia Type: [id number] spinal Post-Procedure Post-procedure diagnosis 28 years old 2 para 1-0-0-1 with single intrauterine at the 37 weeks and 6days in labor, desiring repeat delivery. Findings 1. There was severe adhesion at the upper one third of uterus, not able to exteriorize the uterus or evaluate the fallopian tubes or ovaries 2. Viable female in cephalic presentation. 8 at one minute and 9 in 5 minutes. Weight: 4060 g - 8 pounds 15 ounces. Time of delivery: 00:00. There was nuchal cord x1 3. Placenta with three vessel cord, umbilical cord was greenish due to thick meconium 4. Amniotic fluid -thick meconium Estimated Blood Loss: 500 - 600 mls Specimen(s) none Grafts/Implant(s) none Complication(s) none Pt Condition post procedure: stable Disposition: PACU Procedure Description INDICATION AND HISTORY: A 28 years old 2 para 1-0-0-1 with single intrauterine at the 37 weeks and 6days in labor, desiring repeat delivery. The risk of delivery including but not limited to bleeding, infection, injury to other organs (bowel, bladder, ureter, vessels, nerves), injury to fetus, blood transfusion, blood transfusion related infection, risk of anesthesia, adhesion, needs for future , removal of uterus or any other indicated surgery was discussed with the patient and her family. She expressed understanding. All of her questions were answered. She signed the informed consent. DESCRIPTION OF OPERATION: The patient was taken to the operating room, where she was identified and the procedure was verified. The patient received azithromycin 500 mg and two gram of Ancef 30 minutes prior to surgery. Spinal anesthesia was placed. The patient placed in the dorsal supine position with a left tilt. The heart rate was 142 bpm. The patient was then prepped and draped in the normal sterile fashion. A Pfannenstiel skin incision was made above previous incision and the thick scar was removed then the incision carried down to the fascia with knife. The fascia was incised in the midline and the fascial incision was carried laterally with Howard scissors. The superior portion of the fascial incision was then grasped with Clay clamps and tented up and dissected off the underlying rectus muscle with sharp dissection. The lower portion of the fascial incision was then made in a similar fashion. The rectus muscle was and the peritoneum was entered. There was dense adhesion between peritoneum and upper one third of the uterus which some released to be able to enter the peritoneum. Then the peritoneal incision was stretched carefully and a bladder blade was inserted. Then, an incision was made in the lower uterine segment in a transverse fashion with a knife and extended bluntly. The was delivered atraumatically in cephalic presentation after releasing nuchal cord with the above findings. The umbilical cord was clamped and cut. The neonatology resuscitation team was present and the baby was handed to them. A cord blood sample was obtained for further evaluation. The placenta and membrane, which appeared normal were Removed. The uterus was cleared of all clot and debris. The uterus was then closed in a two layer fashion with 0-Monocryl. At the time of closure, hemostasis was noted. Interceed inserted on the uterus. The gutters were irrigated. The peritoneum was reapproximated with 3-0 Vicryl. The muscle was reapproximated with 3-0 Vicryl. The fascia was approximated with 0- Vicryl in a running fashion. The subcutaneous tissue was re approximated with 3-0 vicryl. The skin was closed with 4-0 Monocryl. All instruments, sponges and needle counts were correct x3. The patient tolerated the procedure well. She transferred to the recovery room in stable condition. ANJELICA KENNEY October 16, 2018 01:27
[2018-10-16] MEDS ORDERED: DIPHENHYDRAMINE 50 MG INJ ONE (01:49)
[2018-10-16] MEDS ORDERED: DIPHENHYDRAMINE 50 MG INJ IV PRN (02:00)
[2018-10-16] MEDS ORDERED: OXYTOCIN 30 UNITS/LR 500 ML IV SCH (03:52)
[2018-10-16] MEDS: DEXTROSE 5%-LR 1,000 ML IV SCH ×3 (03:52→19:52)
[2018-10-16] MEDS ORDERED: MISOPROSTOL 200 MCG TAB PR PRN (04:00)
[2018-10-16] MEDS ORDERED: METHYLERGONOVINE 0.2 MG TAB PO PRN (04:00)
[2018-10-16] MEDS ORDERED: KETOROLAC 30 MG INJ IV PRN (04:00)
[2018-10-16] MEDS ORDERED: CARBOPROST 250 MCG INJ IM PRN (04:00)
[2018-10-16] MEDS ORDERED: METHYLERGONOVINE 0.2 MG INJ IM PRN (04:00)
[2018-10-16] MEDS ORDERED: ONDANSETRON 4 MG INJ IV PRN (04:00)
[2018-10-16] MEDS ORDERED: LANOLIN HPA 1 PKT TOP PRN (04:00)
[2018-10-16] MEDS ORDERED: OXYTOCIN 30 UNITS/LR 500 ML IV PRN (04:00)
[2018-10-16] MEDS ORDERED: MAGNESIUM HYDROXIDE 30ML CUP PO PRN (04:00)
[2018-10-16 04:05] VITALS: BP 127/80; PULSE 74; RESP 18
[2018-10-16] MEDS ORDERED: IBUPROFEN 800 MG TAB PO SCH (06:00)
[2018-10-16 07:45] VITALS: BP 133/77; PULSE 86; RESP 17
--- NOTE | 2018-10-16 08:04 | PAC ---
Date/Time of Note Date/Time of Note DATE: 10/16/18 TIME: 08:04 Post-Anesthesia Notes Post-Anesthesia Note Last documented vital signs Vital Signs Date Temp Pulse Resp B/P (MAP) Pulse Ox O2 O2 Flow FiO2 Time Delivery Rate 10/16/18 98.2 74 18 127/80 99 Room Air 04:05 (96) Activity: WNL Respiratory function: WNL Cardiovascular function: WNL Mental status: Baseline Pain reasonably controlled: Yes Hydration appropriate: Yes Nausea/Vomiting absent: No LUC WILLIS MD October 16, 2018 08:04
[2018-10-16] MEDS: SENNA/DOCUSATE NA (8.6MG/50MG) TAB PO SCH ×2 (08:58→21:23)
[2018-10-16 11:45] VITALS: BP 111/58; PULSE 80; RESP 16
[2018-10-16] MEDS: LACTATED RINGER'S 1,000 ML IV SCH ×2 (14:43→20:47)
[2018-10-16 15:19] VITALS: BP 109/71; PULSE 89; RESP 17
--- NOTE | 2018-10-16 16:26 | PN ---
Date/Time of Note Date/Time of Note DATE: 10/16/18 TIME: 16:22 OB Subjective Subjective Subjective POD#1 Patient is doing well. She denies nausea, vomiting, shortness of breath, chest pain, headache. She has been ambulating without difficulty, tolerating regular diet. Pain is well controlled on current medications OB Objective Objective Objective Vital Signs Date Temp Pulse Resp B/P (MAP) Pulse Ox O2 O2 Flow FiO2 Time Delivery Rate 10/16/18 98.2 89 17 109/71 99 Room Air 15:19 (84) General: AAO X 3, comfortable, NAD, appropriate mood and affect. Heart: RRR +S1, +S2, no murmurs. Lungs: Clear to auscultation (B/L), no rales, rhonchi or wheezing. ABD: +BS. Soft, non-tender. Uterus 2 cm below umbilicus Incision: Dry dressing Flank: No CVA tenderness (B/L) LE: Mild edema. No clubbing, cyanosis, thigh or calf tenderness (B/L). Homans 'sign is negative OB Assessment/Plan Other plan: 28 years old 2 para 2-0-0-2 s/p repeat delivery at 37 weeks and 6 days. POD#1 - AF, VSS - Contraception methods with R/B/A/FR discussed - Continue care ANJELICA KENNEY October 16, 2018 16:26
[2018-10-16 19:45] VITALS: BP 122/58; PULSE 90; RESP 18
[2018-10-17] VITALS: BP 121/65; PULSE 91; RESP 18
[2018-10-17 04:00] VITALS: BP 123/74; PULSE 94; RESP 18
[2018-10-17] MEDS: DEXTROSE 5%-LR 1,000 ML IV SCH (07:00)
[2018-10-17] MEDS: LACTATED RINGER'S 1,000 ML IV SCH (07:00)
[2018-10-17 08:30] VITALS: BP 129/63; PULSE 103; RESP 18
[2018-10-17] MEDS: SENNA/DOCUSATE NA (8.6MG/50MG) TAB PO SCH ×2 (09:32→21:24)
[2018-10-17] MEDS ORDERED: HYDROCODONE/APAP (5/325) TAB NGT PRN (11:00)
[2018-10-17] MEDS ORDERED: DIPHTH/TET/ACEL PERTUSS (ADULT) 0.5 ML VIAL IM* ONE (11:00)
[2018-10-17] MEDS: IBUPROFEN 800 MG TAB PO SCH ×2 (15:08→21:24)
[2018-10-17] MEDS: HYDROCODONE/APAP (5/325) TAB GTB SCH ×2 (15:09→21:25)
--- NOTE | 2018-10-17 15:12 | PN ---
Date/Time of Note Date/Time of Note DATE: 10/17/18 TIME: 15:10 OB Subjective Subjective Subjective Ambulating. Passed flatus. Baby is in NICU. Pumping her breast. Tolerates a regular diet. Urinated. Denies any depressive symptoms. Denies any chest pain, shortness of breath, dizziness, lightheadedness OB Objective Objective Objective General appearance: Alert and oriented x4 does not appear to be in any acute distress Abdomen: Soft, fundus palpable at the level of umbilicus. Appropriate tenderness and abdominal incision noted Incision: Clean dry and intact Breast: No evidence of mastitis or fissure Extremities: No calf tenderness, no click no edema no cord palpable VS - Last 72 Hours, by Label Date Temp Pulse Resp B/P (MAP) Pulse Ox O2 O2 Flow FiO2 Time Delivery Rate 10/17/18 99.6 103 18 129/63 Room Air 08:30 (85) 10/17/18 98.4 94 18 123/74 Room Air 04:00 (90) 10/17/18 99.0 91 18 121/65 97 Room Air 00:00 (83) 10/16/18 99.0 90 18 122/58 Room Air 19:45 (79) 10/16/18 98.2 89 17 109/71 99 Room Air 15:19 (84) 10/16/18 98.1 80 16 111/58 98 Room Air 11:45 (75) 10/16/18 98.8 86 17 133/77 99 Room Air 07:45 (95) 10/16/18 98.2 74 18 127/80 99 Room Air 04:05 (96) 10/15/18 98.8 95 18 155/89 Room Air 22:30 (111) Laboratory Tests Test 10/17/18 07:18 White Blood Count 16.0 #H Red Blood Count 2.84 #L Hemoglobin 7.0 #L Hematocrit 22.2 #L Mean Corpuscular Volume 78.2 L Mean Corpuscular Hemoglobin 24.6 L Mean Corpuscular Hemoglobin Concent 31.5 L Red Cell Distribution Width 15.2 H Platelet Count 253 Mean Platelet Volume 11.9 H Immature Granulocytes % 0.800 H Neutrophils % 76.9 Lymphocytes % 14.4 L Monocytes % 7.2 Eosinophils % 0.5 Basophils % 0.2 Nucleated Red Blood Cells % 0.0 Immature Granulocytes # 0.130 H Neutrophils # 12.3 H Lymphocytes # 2.3 Monocytes # 1.2 H Eosinophils # 0.1 Basophils # 0.0 Nucleated Red Blood Cells # 0.0 OB Assessment/Plan Other Assessment: s/p repeat section Anemia, postop, based on hemoglobin at the time prior to patient had pre-existing anemia patient is asymptomatic. Postoperative day #1 Doing well Baby is NICU , has been pumping her breast Routine postop care Iron twice a day with stool softener CHLOE SARMIENTO MD October 17, 2018 15:12
[2018-10-17] MEDS ORDERED: DOCUSATE SODIUM 100 MG CAP PO PRN (15:30)
[2018-10-17 15:42] VITALS: BP 123/73; PULSE 91; RESP 18
[2018-10-17 20:00] VITALS: BP 120/76; PULSE 94; RESP 18
[2018-10-17] MEDS: POLYSACCHARIDE IRON COMPLEX CAP PO SCH (21:24)
[2018-10-18 04:09] VITALS: BP 111/56; PULSE 89; RESP 18
[2018-10-18] MEDS: IBUPROFEN 800 MG TAB PO SCH ×3 (06:00→21:39)
[2018-10-18] MEDS: HYDROCODONE/APAP (5/325) TAB GTB SCH ×3 (06:00→21:40)
--- NOTE | 2018-10-18 07:38 | OPPN ---
Date/Time of Note Date/Time of Note DATE: 10/17/18 TIME: 07:32 Anesthesia Follow up Anesthesia Follow up Last documented vital signs Vital Signs Date Temp Pulse Resp B/P (MAP) Pulse Ox O2 O2 Flow FiO2 Time Delivery Rate 10/18/18 98.0 89 18 111/56 Room Air 04:09 (74) 10/17/18 97 00:00 Respiratory function: WNL Cardiovascular function: WNL Comments A 28 year old s/p spinal duramorph forpost op pain POD 1is doing well. No headache, N/V. itching, pain, neural deficit. LUC WILLIS MD October 18, 2018 07:38
[2018-10-18 08:00] VITALS: BP 131/75; PULSE 88; RESP 19
[2018-10-18] MEDS: SENNA/DOCUSATE NA (8.6MG/50MG) TAB PO SCH ×2 (08:38→21:39)
[2018-10-18] MEDS: POLYSACCHARIDE IRON COMPLEX CAP PO SCH ×2 (08:38→21:39)
[2018-10-18 16:00] VITALS: BP 125/84; PULSE 80; RESP 18
--- NOTE | 2018-10-18 18:01 | QN ---
Documentation Comment POD#2 is stable afebrile tolerated diet No VB +flatus VS stable Gen NAD Abd soft NT ND Incision intact Genitalia No blood at perineum Hb 6.5 --->Blood transfulsin offered. Patient declined --->CBC at 9 M --->patient will be signed out to at 7 pm MARTIN RSOE M.D. October 18, 2018 18:00
[2018-10-18 20:30] VITALS: BP 137/81; PULSE 95
[2018-10-18] MEDS: FERROUS SULFATE (EC) 325 MG TAB PO SCH (21:39)
[2018-10-19] VITALS (19 sets, daily range): BP systolic 124–187; BP diastolic 68–104; PULSE 67–105; RESP 16–20
[2018-10-19] MEDS ORDERED: IBUPROFEN 800 MG TAB PO SCH (04:00)
[2018-10-19] MEDS: IBUPROFEN 800 MG TAB PO SCH ×3 (05:34→22:28)
[2018-10-19] MEDS: HYDROCODONE/APAP (5/325) TAB GTB SCH ×3 (05:35→22:27)
[2018-10-19] MEDS ORDERED: ACETAMINOPHEN 325 MG TAB PO ONE ×3 (08:56→19:00)
[2018-10-19] MEDS ORDERED: MEASLES,MUMPS,RUBELLA VACCINE INJ SC* ONE (09:00)
[2018-10-19] MEDS ORDERED: DIPHTH/TET/ACEL PERTUSS (ADULT) 0.5 ML VIAL IM* ONE (09:00)
[2018-10-19] MEDS ORDERED: DIPHENHYDRAMINE 50 MG INJ IV ONE ×2 (09:02→09:30)
[2018-10-19] MEDS: POLYSACCHARIDE IRON COMPLEX CAP PO SCH ×2 (10:11→22:27)
[2018-10-19] MEDS: FERROUS SULFATE (EC) 325 MG TAB PO SCH ×3 (10:11→22:27)
[2018-10-19] MEDS: SENNA/DOCUSATE NA (8.6MG/50MG) TAB PO SCH ×2 (10:15→22:27)
[2018-10-19] MEDS ORDERED: DIPHENHYDRAMINE 25 MG CAP PO ONE ×2 (11:53→12:00)
[2018-10-19] MEDS ORDERED: DIPHENHYDRAMINE 25 MG CAP ONE (11:54)
--- NOTE | 2018-10-19 12:02 | QN ---
Documentation Comment Postop day #3 Status post repeat Patient is feeling weak Vital signs stable VS - Last 72 Hours, by Label Date Temp Pulse Resp B/P (MAP) Pulse Ox O2 O2 Flow FiO2 Time Delivery Rate 10/19/18 98.1 90 18 124/69 Room Air 08:00 (87) 10/19/18 98.0 101 18 130/73 Room Air 04:00 (92) 10/18/18 98.4 95 137/81 Room Air 20:30 (99) 10/18/18 98.7 80 18 125/84 Room Air 16:00 (98) 10/18/18 98.2 88 19 131/75 Room Air 08:00 (93) 10/18/18 98.0 89 18 111/56 Room Air 04:09 (74) 10/17/18 98.2 94 18 120/76 Room Air 20:00 (91) 10/17/18 98.7 91 18 123/73 Room Air 15:42 (90) 10/17/18 99.6 103 18 129/63 Room Air 08:30 (85) 10/17/18 98.4 94 18 123/74 Room Air 04:00 (90) 10/17/18 99.0 91 18 121/65 97 Room Air 00:00 (83) 10/16/18 99.0 90 18 122/58 Room Air 19:45 (79) 10/16/18 98.2 89 17 109/71 99 Room Air 15:19 (84) Hematology - 72 Hrs Test 10/17/18 07:18 10/18/18 17:07 10/18/18 23:00 10/19/18 07:55 Hematocrit 22.2 20.6 20.8 19.9 % (37.0-47.0) % (37.0-47.0) % (37.0-47.0) % (37.0-47.0) #L L L L Hemoglobin 7.0 6.5 6.4 6.3 g/dl (12.0-16.0 g/dl (12.0-16. g/dl (12.0-16. g/dl (12.0-16. ) #L 0) *L 0) *L 0) *L Mean 24.6 25.2 24.9 25.3 Corpuscular pg (29.0-33.0) pg (29.0-33.0) pg (29.0-33.0) pg (29.0-33.0) Hemoglobin L L L L Mean 31.5 31.6 30.8 31.7 Corpuscular g/dl (32.0-37.0 g/dl (32.0-37. g/dl (32.0-37. g/dl (32.0-37. Hemoglobin Conc ) L 0) L 0) L 0) L ent Mean 78.2 79.8 80.9 79.9 Corpuscular fl (82.0-101.0) fl (82.0-101.0 fl (82.0-101.0 fl (82.0-101.0 Volume L ) L ) L ) L Mean Platelet 11.9 10.3 10.3 10.8 Volume fl (7.4-10.4) fl (7.4-10.4) fl (7.4-10.4) fl (7.4-10.4) H H Platelet Count 253 268 308 310 10^3/UL (140-41 10^3/UL (140-4 10^3/UL (140-4 10^3/UL (140-4 5) 15) 15) 15) Red Blood 2.84 2.58 2.57 2.49 Count 10^6/ul (4.20-5 10^6/ul (4.20- 10^6/ul (4.20- 10^6/ul (4.20- .40) #L 5.40) L 5.40) L 5.40) L Red Cell 15.2 15.1 15.3 15.5 Distribution % (11.5-14.5) % (11.5-14.5) % (11.5-14.5) % (11.5-14.5) Width H H H H White Blood 16.0 11.5 10.2 8.7 Count 10^3/ul (4.8-10 10^3/ul (4.8-1 10^3/ul (4.8-1 10^3/ul (4.8-1 .8) #H 0.8) #H 0.8) 0.8) Abdomen soft, fundus firm Incision clean,dry,intact Extremities nontender Assessment and plan Severe anemia and symptomatic-we will give 2 units of packed RBCs Repeat CBC in 4 hours posttransfusion Encouraged to ambulate Continue with routine postop care MIGUELANGEL MCDERMOTT MD October 19, 2018 12:02
[2018-10-19] MEDS ORDERED: LABETALOL HCL 20MG INJ IV PRN (15:30)
[2018-10-19] MEDS ORDERED: MAGNESIUM SULFATE 4 GM/100 ML 100 ML IV SCH (16:00)
[2018-10-19] MEDS: MAGNESIUM SULFATE 20 GM/500 ML 500 ML IV SCH (16:26)
[2018-10-19] MEDS: LACTATED RINGER'S 1,000 ML IV SCH (17:01)
[2018-10-20] VITALS (14 sets, daily range): BP systolic 113–154; BP diastolic 62–95; PULSE 66–93; RESP 18–20
[2018-10-20] MEDS: MAGNESIUM SULFATE 20 GM/500 ML 500 ML IV SCH ×3 (02:54→22:00)
[2018-10-20] MEDS: LACTATED RINGER'S 1,000 ML IV SCH ×2 (05:46→19:40)
[2018-10-20] MEDS: IBUPROFEN 800 MG TAB PO SCH ×3 (05:46→22:03)
[2018-10-20] MEDS: HYDROCODONE/APAP (5/325) TAB GTB SCH ×3 (05:46→22:04)
[2018-10-20] MEDS: POLYSACCHARIDE IRON COMPLEX CAP PO SCH ×2 (09:26→22:04)
[2018-10-20] MEDS: FERROUS SULFATE (EC) 325 MG TAB PO SCH ×3 (09:26→22:03)
[2018-10-20] MEDS: SENNA/DOCUSATE NA (8.6MG/50MG) TAB PO SCH ×2 (09:26→22:03)
--- NOTE | 2018-10-20 13:02 | QN ---
Documentation Comment POD#2 is stable afebrile tolerated diet No VB +BM +voids VS stable BP 140-150s/90s Gen NAD Abd soft NT ND Incision intact Genitalia No blood at perineum s/p MG and Blood transfusion --->Stop Mg -->Labetalol started -->possible discharge tomorrow MARTIN ROSE M.D. October 20, 2018 13:02
[2018-10-20] MEDS: LABETALOL 200 MG TAB PO SCH ×2 (13:03→22:05)
[2018-10-21 03:59] VITALS: BP 148/88; PULSE 78; RESP 20
[2018-10-21] MEDS: IBUPROFEN 800 MG TAB PO SCH (05:31)
[2018-10-21] MEDS: HYDROCODONE/APAP (5/325) TAB GTB SCH (05:32)
[2018-10-21 08:15] VITALS: BP 148/71; PULSE 51; RESP 18
[2018-10-21] MEDS ORDERED: PETROLATUM 5 GM OINT TOP ONE (08:27)
[2018-10-21] MEDS: POLYSACCHARIDE IRON COMPLEX CAP PO SCH (08:58)
[2018-10-21] MEDS: SENNA/DOCUSATE NA (8.6MG/50MG) TAB PO SCH (08:58)
[2018-10-21] MEDS: LABETALOL 200 MG TAB PO SCH (08:58)
[2018-10-21] MEDS: FERROUS SULFATE (EC) 325 MG TAB PO SCH (08:58)
--- NOTE | 2018-10-21 10:17 | DS ---
Date/Time of Note Date/Time of Note DATE: 10/21/18 TIME: 10:08 Obstetrical Discharge Record Final Diagnosis Final Diagnosis: Term delivered Other Final Diagnosis Postop day #5 Status pos repeat Patient stable and afebrile Patient is ambulating, tolerating regular diet, voiding and positive flatus Vital signs stable Hematology - 72 Hrs Test 10/18/18 17:07 10/18/18 23:00 10/19/18 07:55 10/19/18 15:37 Hematocrit 20.6 20.8 19.9 24.8 % (37.0-47.0) % (37.0-47.0) % (37.0-47.0) % (37.0-47.0) L L L #L Hemoglobin 6.5 6.4 6.3 7.9 g/dl (12.0-16.0 g/dl (12.0-16. g/dl (12.0-16. g/dl (12.0-16. ) *L 0) *L 0) *L 0) #L Mean 25.2 24.9 25.3 25.6 Corpuscular pg (29.0-33.0) pg (29.0-33.0) pg (29.0-33.0) pg (29.0-33.0) Hemoglobin L L L L Mean 31.6 30.8 31.7 31.9 Corpuscular g/dl (32.0-37.0 g/dl (32.0-37. g/dl (32.0-37. g/dl (32.0-37. Hemoglobin Conc ) L 0) L 0) L 0) L ent Mean 79.8 80.9 79.9 80.5 Corpuscular fl (82.0-101.0) fl (82.0-101.0 fl (82.0-101.0 fl (82.0-101.0 Volume L ) L ) L ) L Mean Platelet 10.3 10.3 10.8 10.6 Volume fl (7.4-10.4) fl (7.4-10.4) fl (7.4-10.4) fl (7.4-10.4) H H Platelet Count 268 308 310 356 10^3/UL (140-41 10^3/UL (140-4 10^3/UL (140-4 10^3/UL (140-4 5) 15) 15) 15) Red Blood 2.58 2.57 2.49 3.08 Count 10^6/ul (4.20-5 10^6/ul (4.20- 10^6/ul (4.20- 10^6/ul (4.20- .40) L 5.40) L 5.40) L 5.40) #L Red Cell 15.1 15.3 15.5 15.6 Distribution % (11.5-14.5) % (11.5-14.5) % (11.5-14.5) % (11.5-14.5) Width H H H H White Blood 11.5 10.2 8.7 9.3 Count 10^3/ul (4.8-10 10^3/ul (4.8-1 10^3/ul (4.8-1 10^3/ul (4.8-1 .8) #H 0.8) 0.8) 0.8) Test 10/20/18 04:52 Hematocrit 29.2 % (37.0-47.0) L Hemoglobin 9.4 g/dl (12.0-16.0 ) L Mean 26.0 Corpuscular pg (29.0-33.0) Hemoglobin L Mean 32.2 Corpuscular g/dl (32.0-37.0 Hemoglobin Conc ) ent Mean 80.7 Corpuscular fl (82.0-101.0) Volume L Mean Platelet 10.3 Volume fl (7.4-10.4) Platelet Count 393 10^3/UL (140-41 5) Red Blood 3.62 Count 10^6/ul (4.20-5 .40) L Red Cell 15.0 Distribution % (11.5-14.5) Width H White Blood 8.2 Count 10^3/ul (4.8-10 .8) Chemistry Test 10/19/18 15:37 10/20/18 00:28 10/20/18 04:52 10/20/18 11:47 Sodium Level 137 mmol/L (135-144 ) Potassium 4.5 Level mmol/L (3.5-5.1 ) Chloride Level 107 mmol/L (97-110) Carbon Dioxide 26 Level mmol/L (21-31) Anion Gap 4 (5-13) L Blood Urea 14 mg/dl (7-20) Nitrogen Creatinine 0.83 mg/dl (0.44-1.0 0) Est Glomerular > 60 Filtrat mL/min (>60) Rate mL/min Glucose Level 78 mg/dl (70-220) Uric Acid 6.7 mg/dl (3.1-7.9) Calcium Level 8.7 mg/dl (8.4-10.2 ) Total 0.8 Bilirubin mg/dl (0.2-1.3) Direct 0.00 Bilirubin mg/dl (0.00-0.2 0) Indirect 0.8 Bilirubin mg/dl (0-1.1) Aspartate Amino 40 IU/L (15-46) Transf (AST/SGO T) Alanine 25 IU/L (13-69) Aminotransferas e (ALT/SGPT) Alkaline 136 Phosphatase IU/L (42-121) H Total Protein 6.5 g/dl (6.1-8.1) Albumin 3.1 g/dl (3.3-4.9) L Globulin 3.40 g/dl (1.3-3.2) H Albumin/Globuli 0.91 n Ratio Magnesium 6.2 6.7 7.6 Level mg/dl (1.7-2.5 mg/dl (1.7-2.5 mg/dl (1.7-2.5 ) *H ) *H ) *H Abdomen soft, fundus firm Incision clean, dry, intact Extremities nontender Assessment and plan During the hospital course patient developed symptoms of anemia and received transfusion with 2 units of packed RBCs Patient also received magnesium sulfate for 24 hours after developing high blood pressure She is currently stable on labetalol 200 mg p.o. twice daily Patient stable and doing well Plan to discharge home Prescription for labetalol and pain meds were given Patient was given instruction to follow-up with clinic in 2-3 days for blood pressure check Section Section: Repeat Condition on Discharge Physical Assessment Last Vitals: VS - Last 72 Hours, by Label Date Temp Pulse Resp B/P (MAP) Pulse Ox O2 O2 Flow FiO2 Time Delivery Rate 10/21/18 98.3 51 18 148/71 Room Air 08:15 (96) 10/21/18 98.1 78 20 148/88 Room Air 03:59 (108) 10/20/18 98.1 74 20 144/62 Room Air 20:00 (89) 10/20/18 98.2 92 18 151/93 Room Air 16:00 (112) 10/20/18 80 20 150/93 Room Air 12:45 (112) 10/20/18 83 20 141/87 Room Air 11:45 (105) 10/20/18 93 20 139/87 Room Air 10:45 (104) 10/20/18 84 20 152/89 Room Air 09:45 (110) 10/20/18 97.7 73 18 152/93 Room Air 08:45 (112) 10/20/18 66 20 119/82 Room Air 07:45 (94) 10/20/18 70 18 125/79 Room Air 06:51 (94) 10/20/18 66 19 127/84 Room Air 05:45 (98) 10/20/18 98.3 77 19 129/83 Room Air 04:30 (98) 10/20/18 98.2 84 19 131/80 Room Air 03:15 (97) 10/20/18 98.1 91 19 154/95 Room Air 02:10 (114) 10/20/18 98.1 67 19 113/66 Room Air 01:00 (82) 10/19/18 98.3 68 19 137/82 Room Air 23:55 (100) 10/19/18 98.5 74 19 139/85 Room Air 22:50 (103) 10/19/18 98.4 77 19 129/75 Room Air 21:45 (93) 10/19/18 98.0 78 19 149/88 Room Air 20:45 (108) 10/19/18 98.6 84 18 142/94 Room Air 19:45 (110) 10/19/18 98.0 94 19 147/87 Room Air 17:45 (107) 10/19/18 98.2 88 19 138/88 Room Air 16:45 (105) 10/19/18 98.1 75 20 140/86 Room Air 16:40 (104) 10/19/18 98.0 75 16 140/86 Room Air 16:30 (104) 10/19/18 98.1 67 17 132/79 Room Air 16:14 (96) 10/19/18 98.2 85 19 145/68 Room Air 15:40 (93) 10/19/18 98.2 105 19 187/104 Room Air 15:40 (131) 10/19/18 98.2 89 20 149/92 Room Air 15:35 (111) 10/19/18 98.1 88 19 151/95 Room Air 14:35 (113) 10/19/18 98.1 77 19 138/89 Room Air 13:35 (105) 10/19/18 98.1 12:42 10/19/18 98.1 80 17 133/79 Room Air 12:35 (97) 10/19/18 98.3 80 18 126/78 Room Air 12:20 (94) 10/19/18 98.3 91 17 132/86 Room Air 11:59 (101) 10/19/18 98.3 11:57 10/19/18 98.1 90 18 124/69 Room Air 08:00 (87) 10/19/18 98.0 101 18 130/73 Room Air 04:00 (92) 10/18/18 98.4 95 137/81 Room Air 20:30 (99) 10/18/18 98.7 80 18 125/84 Room Air 16:00 (98) Voiding: Yes Bowel Movement: Yes Breast: Soft, non-tender Fundus: Firm Calf Tenderness: No Patient Condition: Good MIGUELANGEL MCDERMOTT MD October 21, 2018 10:17
== END 2018-10-21 12:55 | disposition home or self-care (01) | DRG 788 ==
LOC: OBT 20:11 → L-D 20:12 → OBT 20:41 → L-D 20:41 → PP1 10-16 04:09
PROVIDERS: ADMIT Obstetrics & Gynecology; ATTEND Obstetrics & Gynecology
PROC: 10D00Z1 Extraction of Products of Conception, Low, Open Approach (ICD-10-PCS; principal; 2018-10-15)
DX: O65.5 Obstructed labor due to abnormality of maternal pelvic organs (principal); O34.211 Maternal care for low transverse scar from previous cesarean delivery; O99.89 Other specified diseases and conditions complicating pregnancy, childbirth and the puerperium; N73.6 Female pelvic peritoneal adhesions (postinfective); Z3A.37 37 weeks gestation of pregnancy; Z37.0 Single live birth
CPT/HCPCS: 36430; 80053; 80307; 81001; 83735; 84560; 85025; 85610; 85730; 86592; 86850; 86900; 86901; 86920; 87340; 99464; G0463; J0456; J0690; J1200; J1885; J2274; J2405; J2590; J2765; J3105; J3475; J7120; J7121; P9016